=== PATIENT | female | born 1960 | race Caucasian/White ===

== ENCOUNTER → 2016-08-17 | Outpatient (CLI) | payer OTHER ==
[~2016-08-17] MED LIST: DENOSUMAB 60 MG/ML 1 ML SYRINGE SQ ONE
[2016-08-17 10:31] VITALS: BP 114/64; PULSE 97; RESP 16; TEMP 98.1
== END ==
LOC: PROCWHC3 09:44
PROVIDERS: ATTEND Family Medicine
DX: M81.0 Age-related osteoporosis without current pathological fracture (principal)
CPT/HCPCS: 96372; J0897

== ENCOUNTER → 2017-02-19 | Outpatient (CLI) | payer OTHER ==
[2017-02-19 09:40] VITALS: BP 119/86; PULSE 94; RESP 16; TEMP 97.9
== END ==
LOC: PROCWHC3 09:24
PROVIDERS: ATTEND Family Medicine
DX: M81.0 Age-related osteoporosis without current pathological fracture (principal)
CPT/HCPCS: 96372; J0897

== ENCOUNTER → 2017-08-14 | Outpatient (CLI) | payer OTHER ==
[2017-08-14 13:05] LABS: Blood Urea Nitrogen 8 mg/dL (7-17)
== END | disposition home or self-care (01) ==
LOC: LABWHC1 11:40
PROVIDERS: ATTEND Physical Medicine & Rehabilitation
DX: M48.062 Spinal stenosis, lumbar region with neurogenic claudication (principal); M47.817 Spondylosis without myelopathy or radiculopathy, lumbosacral region; E11.9 Type 2 diabetes mellitus without complications; C71.9 Malignant neoplasm of brain, unspecified
CPT/HCPCS: 36415; 82565; 84520

== ENCOUNTER 2018-01-31 08:39 | Day surgery (SDC) | payer MEDICARE, OTHER ==
[2018-01-30 08:42] VITALS: BMI 28.3
[~2018-01-31 08:39] MED LIST changes: -DENOSUMAB 60 MG/ML 1 ML SYRINGE SQ ONE; +LACTATED RINGERS 1,000 ML IV SCH; +LIDOCAINE 1% 20 ML VIAL (10MG/ML) FOR IV START INTRADERMA PRN
[2018-01-31 10:16] LABS: Glucose,Whole Blood 88 mg/dL (75-99)
[2018-01-31 10:26] VITALS: TEMP 97.3
[2018-01-31] MEDS ORDERED: PROPOFOL 10 MG/ML 20 ML VIAL IV ONE (11:13)
--- NOTE | 2018-01-31 11:49 | P.PCN ---
Date of Procedure: 01/31/18 Procedure(s) Performed: Procedure: Esophagogastroduodenoscopy and biopsy. Preoperative diagnosis: Dysphagia. Postoperative diagnosis: 1. Sliding hiatal hernia with no definite esophagitis or complicated reflux disease. 2. Minimal gastritis and duodenitis. 3. 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 4. Biopsies obtained from the duodenum, antrum and esophagus. Preparation and sedation: Was provided by anesthesia. Brief clinical history: The patient is a 57-year-old female who is scheduled for this evaluation because of dysphagia of around 7 months duration. She also has change in her voice. She did not report any history of bleeding or weight loss. This evaluation is to assess for complicated reflux disease or other pathology. Procedure: With the patient on her left lateral decubitus position and after informed consent and adequate sedation, I passed the Olympus-GIF 160 video upper endoscope through the cricopharyngeus down the esophagus. GE junction was around 38 cm from the incisors and there was a sliding hiatal hernia measuring around 2 cm. The esophagus did not show any definite esophagitis. There was some thickening of the mucosa raising the possibility of chronic esophagitis. Upon introducing the endoscope, there was increased tone at the level of the lower esophageal sphincter that would give way with minimal pressure. The endoscope was then passed into the stomach which was insufflated with air and inspected in detail including the retroflex view in the cardia. Finally, the endoscope was passed through the pylorus into the duodenum. Both, the stomach and duodenum showed some mottling and erythema consistent with mild gastritis and duodenitis. Multiple biopsies were obtained from the duodenum, antrum and esophagus then the endoscope was withdrawn. Upon withdrawing the endoscope, I noted what looks like vocal cord polyps which could account for her voice changes. The patient tolerated the procedure well. Plan: I summarized the findings to the patient. Will await biopsy results and make further recommendations. An ENT evaluation would be suggested as well.
[2018-01-31 11:55] VITALS: PULSE 73; RESP 16
[2018-01-31 11:57] VITALS: BP 97/68
== END 2018-01-31 12:16 | disposition home or self-care (01) ==
LOC: ORWHC2ENDO 08:39
DX: K29.50 Unspecified chronic gastritis without bleeding (principal); K29.80 Duodenitis without bleeding; K44.9 Diaphragmatic hernia without obstruction or gangrene; K20.9 Esophagitis, unspecified; J38.1 Polyp of vocal cord and larynx; J44.9 Chronic obstructive pulmonary disease, unspecified; I10 Essential (primary) hypertension; C71.3 Malignant neoplasm of parietal lobe; Z86.718 Personal history of other venous thrombosis and embolism; E78.5 Hyperlipidemia, unspecified; Z72.0 Tobacco use; Z91.040 Latex allergy status
CPT/HCPCS: 88305; 43239; J2704

== ENCOUNTER → 2018-02-18 | Outpatient (CLI) | payer OTHER, MEDICARE ==
--- NOTE | 2018-02-18 13:46 | FL ---
MODIFIED SWALLOW / DEGLUTITION STUDY DATE OF EXAM: 02/18/2018 CLINICAL HISTORY: 57-year-old female with history of GBM, worsening sensation of food sticking in thr oat over the last couple months, Dysphagia. TECHNIQUE: Deglutition study is performed utilizing thin liquid barium, honey and nectar thick liqui d barium, barium thick applesauce, and barium coated cracker. Total fluoroscopy time: 1.38 minutes. Total images: None. Real-time fluoroscopy support provided for speech pathology. COMPARISON: None. FINDINGS: Swallow initiation was mildly delayed with bolus free spilling to the level of the piriform sinuses. The oral and pharyngeal phases show satisfactory initiation and propagation with all modalities teste d. Large bolus of thin barium results in transient penetration. No aspiration seen with any consistency. Mild vallecular residuals with solid consistencies. IMPRESSION: 1. Mildly delayed swallow allowing for premature spillage and subsequent thin liquid penetration duri ng swallows of large boluses. No aspiration seen. 2. Please refer to speech therapist notes for further details if necessary.
== END | disposition home or self-care (01) ==
LOC: RADFLMAIN 10:47
PROVIDERS: ATTEND Otolaryngology
DX: R13.12 Dysphagia, oropharyngeal phase (principal)
CPT/HCPCS: 74230